=== PATIENT | female | born 1980 | race Caucasian/White ===

== ENCOUNTER 2022-02-24 00:25 | Inpatient (IN) ==
[2022-02-24] MEDS ORDERED: IOPAMIDOL 100 ML BOTTLE IV ONE ×2 (00:26→06:41)
--- NOTE | 2022-02-24 01:02 | Emergency Department Note ---
HPI General Chief complaint: Urogenital-Female Stated complaint: flank pain Time Seen by Provider: 02/24/22 01:01 Source: patient and family (Mother in the room) Mode of arrival: ambulatory Limitations: no limitations History of Present Illness HPI Narrative: Narrative: 41-year-old female returns to the emergency department 2 days after presenting with suprapubic discomfort. At that visit she was suspected having a UTI because she had positive nitrites. She was started on Macrobid and discharged home. Tonight she presents complaining of suprapubic discomfort and right mid back pain. She states she is unable to eat. States unable to rest. Rates her pain as a 9 on a 0-to-10 scale. Describes it as sharp. States it radiates to the back. Denies any trauma. May be associated with the UTI. States that the pain comes and goes. She localizes the pain when pointing to McBurney's point. She states the pain originally started suprapubically. Patient is not aware of having any fever but states that she is having significant sweats. Patient also states that she is hadnausea and vomiting on her way home from the ER 2 days ago. Patient has bipolar disorder, PTSD, depression. Related Data Home Medications Medication Instructions Recorded Confirmed propranolol 80 mg capsule,24 80 mg PO DAILY 09/16/15 02/24/22 hr,extended release aripiprazole 20 mg tablet (Abilify) 20 mg PO QDAY 10/24/20 02/24/22 acyclovir 400 mg tablet 400 mg PO TID 04/23/21 02/24/22 duloxetine 60 mg capsule,delayed 60 mg PO BID cap 04/23/21 02/24/22 release (Cymbalta) spironolactone 25 mg tablet 25 mg PO BID tab 04/23/21 02/24/22 dulaglutide [Trulicity] 0.75 mg SUBCUT WEEKLY 11/20/21 02/24/22 diazepam 5 mg tablet 5 mg PO TID PRN 02/24/22 02/24/22 gabapentin 100 mg tablet 100 mg PO TID 02/24/22 02/24/22 gabapentin 300 mg capsule 300 mg PO QHS 02/24/22 02/24/22 lumateperone 42 mg capsule 42 mg PO DAILY 02/24/22 02/24/22 (Caplyta) metronidazole 500 mg tablet 500 mg PO BID 02/24/22 02/24/22 mirtazapine 30 mg tablet 30 mg PO QHS 02/24/22 02/24/22 prazosin 1 mg capsule 1 mg PO QHS 02/24/22 02/24/22 Previous Rx's Medication Instructions Recorded nitrofurantoin 100 mg PO Q12H 7 Days #14 cap 02/22/22 monohydrate/macrocrystals 100 mg capsule (Macrobid) phenazopyridine 100 mg tablet 100 mg PO TID PRN #6 tab 02/22/22 (Pyridium) Allergies Allergy/AdvReac Type Severity Reaction Status Date / Time desvenlafaxine AdvReac Mild Itching Verified 02/24/22 00:29 divalproex sodium AdvReac Mild Agitated Verified 02/24/22 00:29 [From Depakote] lisinopril AdvReac Mild Cough Verified 02/24/22 00:29 morphine AdvReac Mild Agitated Verified 02/24/22 00:29 Review of Systems ROS ROS Narrative: Narrative: Constitutional: Reports sweats Eyes: Denies eye discharge ENT ED: Denies throat pain or rhinorrhea Cardiovascular: Denies chest pain Respiratory: Denies shortness of breath Gastrointestinal: Reports abdominal pain (Right lower quadrant tenderness. Suprapubic discomfort.), nausea, vomiting and constipation Musculoskeletal: Reports back pain Integumentary: Denies rash Neurological: Reports headache Psychiatric: Reports depression Allergic/Immunologic: Denies facial swelling PFSH Narrative Patient History Narrative: Narrative: Medical/Surgical/Family History All Active Problems (Updated 02/24/22 @ 12:47 by Keyur Laguna MD) Acute appendicitis with appendiceal abscess (Acute) Acute appendicitis with appendiceal abscess (Acute) Acute cystitis (Acute) Parasomnia (Acute) Inadequate sleep hygiene (Acute) Bilateral sacroiliitis (Chronic) Chronic SI joint pain (Chronic) Lumbar pain (Chronic) Polymyalgia (Chronic) PTSD (post-traumatic stress disorder) (Chronic) Arthritis of neck (Chronic) Low back strain (Chronic) Right hip pain (Chronic) Sinusitis (Chronic) Anxiety (Chronic) Dysmenorrhea (Chronic ~08/2011) Tobacco abuse (Chronic) Rheumatoid arthritis (Chronic) Prediabetes (Chronic) Polycystic ovaries (Chronic) Panic disorder with agoraphobia (Chronic 10/29/12) Obesity (Chronic) Insomnia (Chronic) Ingrown nail (Chronic) Hypertension, essential (Chronic 07/05/12) Hypercholesteremia (Chronic) Hip pain (Chronic 08/04/12) Headache (Chronic) Fatigue (Chronic) Depression (Chronic ~1993) Cervical vertebral fracture (Chronic) Bipolar disorder (Chronic) Medical History Arthritis of neck Bilateral sacroiliitis Bipolar disorder Cervical vertebral fracture 2004 - With head injury, but fortunately no lasting problems Chronic SI joint pain Depression (~1993) Dysmenorrhea (~08/2011) Fatigue Headache Hip pain (08/04/12) Hypercholesteremia Hypertension, essential (07/05/12) Inadequate sleep hygiene Ingrown nail Insomnia Low back strain Lumbar pain Obesity Panic disorder with agoraphobia (10/29/12) Parasomnia Polycystic ovaries Polymyalgia Prediabetes PTSD (post-traumatic stress disorder) Rheumatoid arthritis "Juvenile' RA per patient. Affected the right hip, but resolved on it's own Right hip pain Tobacco abuse Surgical History History of adenoidectomy History of hysterectomy (~08/2011) 08/2011 - To treat dysmenorrhea History of removal of ovarian cyst (~10/2011) History of tonsillectomy (~1991) Family History Father , 44 Alcohol abuse Depression Drowned Mother Anemia Depression Essential hypertension Osteoarthritis Anxiety Sister Anemia Depression Essential hypertension Grandmother Cerebrovascular accident Maternal/Paternal Disorder of thyroid Maternal Social History Smoking Status: Current every day smoker Alcohol Intake Frequency: holiday/special occasion only Substance Use: marijuana Exam Narrative Narrative: Narrative: General Limitations: no limitations General appearance: Present alert and in distress Head Head: Present atraumatic and normocephalic Eye Eye: Present normal appearance; Absent scleral icterus Neck Neck: Present normal inspection Respiratory Respiratory: Absent respiratory distress Cardiovascular Cardiovascular: Present regular rate and normal rhythm Adbominal Abdominal: Present soft, tenderness, guarding, rebound and tenderness at McBurney's Point; Absent distention or rigidity Extremities Extremities: Present normal inspection Back Back: Present tenderness (Right mid back) Neurological Neurological: Present alert and oriented X3 Psychiatric Psychiatric: Present normal affect and normal mood Skin Skin: Present warm (WNL) Course Reevaluation(s) Reevaluation #1: Patient states the pain is about the same. We discussed her allergy to morphine which causes her to get agitated. She said that she had an Dilaudid in the past without difficulty. Plan is to give her Dilaudid 0.5 mg now and see how she does in 15 minutes. Patient received 1 L of normal saline and needed to urinate. Patient remains NPO. I discussed the results of the CBC and CMP and that we are waiting for the CT scan results. Patient states that the pain remains the about the same in the right lower quadrant. Time: 03:27 Reevaluation #2: CT results positive for acute appendicitis with moderate sized complex abscess extending posteriorly from the tip of the appendix Time: 04:16 Consultations Consultation #1: Discussed with the surgeon on-call Dr. Aviles. He requested the patient be admi tted onto his service and started on Zosyn 3.375 every 6 along with analgesics and antiemetics and IV fluids. He was here in the hospital. Time: 04:18 Vital Signs Vital signs: Vital Signs Temperature 97.7 F 02/24/22 00:26 Pulse Rate 90 02/24/22 00:26 Respiratory Rate 18 02/24/22 00:26 Blood Pressure 134/84 02/24/22 00:26 Pulse Oximetry (%) 96 02/24/22 00:26 Temperature 97.1 F 02/24/22 07:02 Pulse Rate 87 02/24/22 07:02 Respiratory Rate 15 02/24/22 07:02 Blood Pressure 101/68 02/24/22 07:02 Pulse Oximetry (%) 90 02/24/22 07:02 [facility] Narrative Medical decision making narrative: Narrative: 41-year-old female presents emerged from and with right lower quadrant pain 2 days after being diagnosed as having a UTI because of a positive nitrite on a urine dip. Differential diagnosis includes 1. Acute appendicitis 2. Meckel's diverticulum 3. Kidney stone 4. Pyelonephritis 5. Urinary tract infection 6. Torsion right ovary 7. Tubo-ovarian abscess, other. UA was obtained and it revealed positive nitrites but only 1 white cell and no red cells. White count was16,400 with 78 neutrophils and 11 lymphs. Hemoglobin was 14.3. Lactic acid level was normal at 0.6. Chemistry panel was unrema rkable. Chloride was minimally low at 95. BUN was 5 creatinine was 0.[address] scan still pending. Patient was ordered a liter of normal saline. She was given 4 mg of Zofran IV. Patient is allergic to morphine so pain medicine was initially withheld. Patient states she has had Dilaudid in the past and is given 0.5 mg IV now and will be rechecked in 15 minutes to see how she responded. Patient tolerated the Dilaudid well. She was given a second dose of 0.5 mg and that brought her pain down to a 5 on a 0-to-10 scale. Patient stated she did not want any more analgesics at this time. CT scan results revealed findings compatible with acute appendicitis with moderate size complex abscess extending posteriorly from the tip of the appendix. Abscess measured 7 x 4 x 5 cm. Case was discussed with Dr. Aviles the general surgeon on-call. He requested I admit the patient to the hospital under his service. Asked that I provide the patient with Zosyn 3.375Q6 along with antiemetics and analgesia. Lab Data Result diagrams: 02/24/22 01:42 02/24/22 01:42 Labs: Lab Results 02/24/22 02/24/22 02/24/22 Range/Units 00:50 01:42 01:42 WBC 16.4 H (4.5-11.0) K/mcL RBC 4.93 (3.59-5.38) M/mcL Hgb 14.3 (11.2-15.7) g/dL Hct 43.2 (34.1-44.9) % MCV 87.6 (80.0-100.0) fL MCH 29.0 (26.0-34.0) pg MCHC 33.1 (31.0-36.0) g/dL RDW 12.8 (11.5-14.5) % Plt Count 223 (140-440) K/mcL MPV 10.9 H (7.4-10.4) fL Neut % (Auto) 78.4 H (38.0-78.0) % Lymph % (Auto) 11.6 L (15.5-49.0) % Sherman % (Auto) 7.6 (1.0-12.0) % Eos % (Auto) 2.1 (0.0-7.0) % Baso % (Auto) 0.3 (0.0-2.0) % Lymph # (Auto) 1.90 (1.50-4.80) K/mcL Sherman # (Auto) 1.24 H (0.10-0.90) K/mcL Eos # (Auto) 0.35 (0.00-0.70) K/mcL Baso # (Auto) 0.05 (0.00-0.30) K/mcL Absolute Neutrophils 12.88 H (1.80-8.00) K/mcL PT (11.9-14.5) sec INR (0.9-1.1) VBG Lactic Acid (0.5-2.0) mmol/L Sodium 133 (133-145) mmol/L Potassium 3.8 (3.3-5.1) mmol/L Chloride 95 L (96-108) mmol/L Carbon Dioxide 25 (22-30) mmol/L Anion Gap 13.0 (8.0-16.0) BUN 5 L (6-20) mg/dL Creatinine 0.5 L (0.6-1.1) mg/dL GFR Calculation 121 Glucose 97 (70-105) mg/dL Calcium 9.0 (8.6-10.4) mg/dL Total Bilirubin 0.4 (0.1-1.0) mg/dL AST 10 (<32) U/L ALT 33 (<40) U/L Alkaline Phosphatase 132 H (39-117) U/L Total Protein 6.5 (5.9-8.4) gm/dL Albumin 3.3 (3.2-5.2) gm/dL Globulin 3.2 (2.2-3.7) gm/dL Albumin/Globulin Ratio 1.0 (1.0-2.3) Urine Color Zuly Urine Appearance Clear (Clear) Urine pH 5.0 (5.0-9.0) Ur Specific [place] 1.014 (1.000-1.035) Urine Protein Negative (Negative) mg/dL Urine Glucose (UA) Negative (Negative) mg/dL Urine Ketones Negative (Negative) mg/dL Urine Occult Blood Negative (Negative) mg/dL Urine Nitrate Pos A (Negative) Urine Bilirubin Negative (Negative) mg/dL Urine Urobilinogen 4.0 A mg/dL Ur Leukocyte Esterase Negative (Negative) /uL Urine RBC 0 (0-3) /hpf Urine WBC 1 (0-4) /hpf Ur Squamous Epith Cells 1 (0-4) /hpf Urine Bacteria None (0) /hpf Ur Culture Indicated? No 02/24/22 02/24/22 Range/Units 01:42 01:42 WBC (4.5-11.0) K/mcL RBC (3.59-5.38) M/mcL Hgb (11.2-15.7) g/dL Hct (34.1-44.9) % MCV (80.0-100.0) fL MCH (26.0-34.0) pg MCHC (31.0-36.0) g/dL RDW (11.5-14.5) % Plt Count (140-440) K/mcL MPV (7.4-10.4) fL Neut % (Auto) (38.0-78.0) % Lymph % (Auto) (15.5-49.0) % Sherman % (Auto) (1.0-12.0) % Eos % (Auto) (0.0-7.0) % Baso % (Auto) (0.0-2.0) % Lymph # (Auto) (1.50-4.80) K/mcL Sherman # (Auto) (0.10-0.90) K/mcL Eos # (Auto) (0.00-0.70) K/mcL Baso # (Auto) (0.00-0.30) K/mcL Absolute Neutrophils (1.80-8.00) K/mcL PT 13.5 (11.9-14.5) sec INR 1.0 (0.9-1.1) VBG Lactic Acid 0.6 (0.5-2.0) mmol/L Sodium (133-145) mmol/L Potassium (3.3-5.1) mmol/L Chloride (96-108) mmol/L Carbon Dioxide (22-30) mmol/L Anion Gap (8.0-16.0) BUN (6-20) mg/dL Creatinine (0.6-1.1) mg/dL GFR Calculation Glucose (70-105) mg/dL Calcium (8.6-10.4) mg/dL Total Bilirubin (0.1-1.0) mg/dL AST (<32) U/L ALT (<40) U/L Alkaline Phosphatase (39-117) U/L Total Protein (5.9-8.4) gm/dL Albumin (3.2-5.2) gm/dL Globulin (2.2-3.7) gm/dL Albumin/Globulin Ratio (1.0-2.3) Urine Color Urine Appearance (Clear) Urine pH (5.0-9.0) Ur Specific [place] (1.000-1.035) Urine Protein (Negative) mg/dL Urine Glucose (UA) (Negative) mg/dL Urine Ketones (Negative) mg/dL Urine Occult Blood (Negative) mg/dL Urine Nitrate (Negative) Urine Bilirubin (Negative) mg/dL Urine Urobilinogen mg/dL Ur Leukocyte Esterase (Negative) /uL Urine RBC (0-3) /hpf Urine WBC (0-4) /hpf Ur Squamous Epith Cells (0-4) /hpf Urine Bacteria (0) /hpf Ur Culture Indicated? ED POC Tests ED POC Tests: JANELLE - SARS Antigen Negative HCG POC Results Negative Discharge Plan Patient/Caregiver Discharge Instructions Pt seen by GLASS DECORATOR/PA only: No Clinical Impression: Acute appendicitis with appendiceal abscess Patient Disposition: Xfer As Inpt ([facility]) Condition: Serious Discharge Date/Time: 02/24/22 06:40 Discharge Location: [facility]
[2022-02-24] MEDS ORDERED: ONDANSETRON 4 MG/2 ML VIAL IV ONE (01:23)
[2022-02-24] MEDS ORDERED: 0.9 % SODIUM CHLORIDE 1,000 ML IV ONE ×2 (01:23→03:18)
[2022-02-24 02:17] LABS: Basophils # (Auto) 0.05 K/mcL (0.00-0.30); Basophils % (Auto) 0.3 % (0.0-2.0); Eosinophils # (Auto) 0.35 K/mcL (0.00-0.70); Eosinophils % (Auto) 2.1 % (0.0-7.0); Hematocrit 43.2 % (34.1-44.9); Hemoglobin 14.3 g/dL (11.2-15.7); Lymphocytes % (Auto) 11.6 % (15.5-49.0); Mean Cell Volume 87.6 fL (80.0-100.0); Mean Corpuscular HGB Conc 33.1 g/dL (31.0-36.0); Mean Platelet Volume 10.9 fL (7.4-10.4); Monocytes # (Auto) 1.24 K/mcL (0.10-0.90); Monocytes % (Auto) 7.6 % (1.0-12.0); Neutrophils % (Auto) 78.4 % (38.0-78.0); Platelet Count 223 K/mcL (140-440); RBC 4.93 M/mcL (3.59-5.38); Red Cell Distribution Width 12.8 % (11.5-14.5); WBC 16.4 K/mcL (4.5-11.0)
[2022-02-24 02:28] LABS: Appearance,Urine CLEAR (Clear); Bilirubin,Urine Negative (Negative); Color,Urine AMBER; Culture Indicated,Urine No; Glucose,Urine (UA) Negative (Negative); Ketones,Urine Negative (Negative); Leukocyte Esterase,Urine Negative /uL (Negative); Nitrate,Urine POS (Negative); Protein,Urine Negative (Negative); Specific Gravity,Urine 1.014 (1.000-1.035); Urine Blood Negative (Negative); Urine RBC 0 /hpf (0-3); Urine Squamous Epithelial Cell 1 /hpf (0-4); Urine WBC 1 /hpf (0-4)
[2022-02-24 02:40] LABS: ALT/SGPT 33 U/L (<40); AST/SGOT 10 U/L (<32); Albumin 3.3 gm/dL (3.2-5.2); Alkaline Phosphatase 132 U/L (39-117); Bilirubin,Total 0.4 mg/dL (0.1-1.0); Blood Urea Nitrogen 5 mg/dL (6-20); Carbon Dioxide 25 mmol/L (22-30); Chloride 95 mmol/L (96-108); Globulin 3.2 gm/dL (2.2-3.7); Glomerular Filtration Rate 121; Glucose 97 mg/dL (70-105)
[2022-02-24] MEDS ORDERED: HYDROmorphone 0.5 MG/0.5 ML SYRINGE IV ONE (03:26)
[2022-02-24] MEDS: HYDROmorphone 0.5 MG/0.5 ML SYRINGE IV PRN ×3 (03:46→17:52)
[2022-02-24] MEDS: PIPERACILLIN SODIUM/TAZOBACTAM 3.375 GM in DEXTROSE 5% IN WATER 50 ML IV SCH ×3 (05:15→17:39)
[2022-02-24 05:40] LABS: Prothrombin Time 13.5 sec (11.9-14.5)
[2022-02-24] MEDS ORDERED: ONDANSETRON 4 MG/2 ML VIAL IV PRN ×2 (07:23→13:48)
[2022-02-24] MEDS ORDERED: PROMETHAZINE 25 MG/ML VIAL IV PRN ×2 (07:48→13:48)
--- NOTE | 2022-02-24 07:57 | XRay Report ---
HISTORY: Preop, smoker, flank pain FINDINGS: The lungs are clear. The heart, mediastinum, curt and pleura are normal. There has been no significant change since 11/01/19. IMPRESSION: Normal chest. Interpreted and Authenticated by: Ran Carson 02/24/22
[2022-02-24] MEDS: 0.9 % SODIUM CHLORIDE 1,000 ML IV SCH ×3 (07:59→18:46)
[2022-02-24] MEDS ORDERED: ACETAMINOPHEN 1,000 MG/100 ML BAG IV SCH ×3 (08:00→17:45)
--- NOTE | 2022-02-24 09:14 | Cat Scan Report ---
History: Right lower quadrant pain, prior hysterectomy TECHNIQUE: Following injection of intravenous nonionic contrast the patient was imaged during the portal venous phase from above the diaphragm through the symphysis pubis. Sagittal and coronal reformats were created. The radiation exposure was limited using dose reduction technology. FINDINGS: The liver and spleen are normal in size and homogeneous. The gallbladder has been removed. The bile ducts are nondilated. The pancreas is normal in size. The mid body there is a focal 1.5 mm calcification. There is no associated inflammation. There is no pancreatic mass and the duct is normal in caliber. The adrenals and kidneys are normal. There is no kidney stone, hydronephrosis or radiographic evidence of pyelonephritis. There is a complex multi loculated fluid collection with thickened sanchez located deep within the right lower pelvis. There is some thickening of the wall of the adjacent distal ileum. This appears to be due to acute appendicitis. What appears to be the appendix measures 16 mm in diameter. The overall size of this collection is approximately 4 x 5 x 7 cm. There is a trace amount of ascites adjacent to this collection. No free intra-abdominal air is present. Large bowel is normal without evidence of diverticulitis or colitis. Left ovary is normal. Right ovary cannot be identified separate from the inflammation in the right lower quadrant. There is arthritis in the facets bilaterally at L4-5 and L5-S1. IMPRESSION: Inflammation with abscess developing deep in the right lower pelvis. This is probably due to acute appendicitis. Interpreted and Authenticated by: Ran Carson 02/24/22
--- NOTE | 2022-02-24 09:59 | General Surg History&Physical ---
HPI History of Present Illness Patient information: Note initiated : 02/24/22 at 9:53 am Service Date, if different from initiated Date: [] Patient: Yvette Arellano a 41 y/o F admitted on 02/24/22 for flank pain. Chief Complaint: [] Chief complaint: Acute appendicitis History of present illness: Ms. Arellano is a 41 year old F admitted for evaluation of abdominal pain with acute appendicitis. The patient presents with a 3-day history of lower abdominal pain and right lower quadrant pain with nausea and vomiting. She states that the pain became more diffuse and radiated through to her back she was seen in the emergency room and treated for UTI about symptoms did not improve. She returned to the emergency room because of continued and worsening symptoms. CT of the abdomen was done that showed an acutely inflamed appendix with a periappendiceal abscess in the pelvis. Patient was admitted and has been started on antibiotics. She is counseled for laparoscopic appendectomy and drainage of pelvic abscess later today. Review of Systems All systems: reviewed and no additional remarkable complaints except as stated (No other symptoms except as noted in the HPI) PFSH PFSH All Active Problems (Updated 02/24/22 @ 09:58 by Hayes Aviles MD) Acute appendicitis with appendiceal abscess (Acute) Acute cystitis (Acute) Parasomnia (Acute) Inadequate sleep hygiene (Acute) Bilateral sacroiliitis (Chronic) Chronic SI joint pain (Chronic) Lumbar pain (Chronic) Polymyalgia (Chronic) PTSD (post-traumatic stress disorder) (Chronic) Arthritis of neck (Chronic) Low back strain (Chronic) Right hip pain (Chronic) Sinusitis (Chronic) Anxiety (Chronic) Dysmenorrhea (Chronic ~08/2011) Tobacco abuse (Chronic) Rheumatoid arthritis (Chronic) Prediabetes (Chronic) Polycystic ovaries (Chronic) Panic disorder with agoraphobia (Chronic 10/29/12) Obesity (Chronic) Insomnia (Chronic) Ingrown nail (Chronic) Hypertension, essential (Chronic 07/05/12) Hypercholesteremia (Chronic) Hip pain (Chronic 08/04/12) Headache (Chronic) Fatigue (Chronic) Depression (Chronic ~1993) Cervical vertebral fracture (Chronic) Bipolar disorder (Chronic) Medical History Arthritis of neck Bilateral sacroiliitis Bipolar disorder Cervical vertebral fracture 2004 - With head injury, but fortunately no lasting problems Chronic SI joint pain Depression (~1993) Dysmenorrhea (~08/2011) Fatigue Headache Hip pain (08/04/12) Hypercholesteremia Hypertension, essential (07/05/12) Inadequate sleep hygiene Ingrown nail Insomnia Low back strain Lumbar pain Obesity Panic disorder with agoraphobia (10/29/12) Parasomnia Polycystic ovaries Polymyalgia Prediabetes PTSD (post-traumatic stress disorder) Rheumatoid arthritis "Juvenile' RA per patient. Affected the right hip, but resolved on it's own Right hip pain Tobacco abuse Surgical History History of adenoidectomy History of hysterectomy (~08/2011) 08/2011 - To treat dysmenorrhea History of removal of ovarian cyst (~10/2011) History of tonsillectomy (~1991) Family History Father , 44 Alcohol abuse Depression Drowned Mother Anemia Depression Essential hypertension Osteoarthritis Anxiety Sister Anemia Depression Essential hypertension Grandmother Cerebrovascular accident Maternal/Paternal Disorder of thyroid Maternal Social History marital status: education level: high school occupational status: disabled leisure activities: fishing and reading physical activity: none smoking status: Current every day smoker tobacco type: cigarettes per day: 23 pack-years: 10 alcohol intake frequency: holiday/special occasion only substance use type: marijuana seatbelt use: always MEDS/ALLERGIES Home Medications and Allergies Home Medications Medication Instructions Recorded Confirmed Type propranolol 80 mg capsule,24 80 mg PO DAILY 09/16/15 11/20/21 History hr,extended release aripiprazole 20 mg tablet (Abilify) 20 mg PO QDAY 10/24/20 11/20/21 History acyclovir 400 mg tablet 400 mg PO TID 04/23/21 11/20/21 History clonazepam 2 mg tablet 2 mg PO .COMPLEX 04/23/21 11/20/21 History duloxetine 60 mg capsule,delayed 60 mg PO BID cap 04/23/21 11/20/21 History release (Cymbalta) spironolactone 25 mg tablet 25 mg PO BID tab 04/23/21 11/20/21 History dulaglutide [Trulicity] SUBCUT 11/20/21 11/20/21 History nitrofurantoin 100 mg PO Q12H 7 Days #14 cap 02/22/22 Rx monohydrate/macrocrystals 100 mg capsule (Macrobid) phenazopyridine 100 mg tablet 100 mg PO TID PRN #6 tab 02/22/22 Rx (Pyridium) Allergies Allergy/AdvReac Type Severity Reaction Status Date / Time desvenlafaxine AdvReac Mild Itching Verified 02/24/22 00:29 divalproex sodium AdvReac Mild Agitated Verified 02/24/22 00:29 [From Depakote] lisinopril AdvReac Mild Cough Verified 02/24/22 00:29 morphine AdvReac Mild Agitated Verified 02/24/22 00:29 Physical Examination Vital Signs Vital signs: Temp Pulse Resp BP Pulse Ox 97.1 F 87 15 101/68 90 02/24/22 07:02 02/24/22 07:02 02/24/22 07:02 02/24/22 07:02 02/24/22 07:02 General physical appearance General physical exam: well developed, well nourished, moderate distress and moderate pain Eyes Eye exam: PERRL and normal ocular movement ENT ENT exam: normal mucosa and no hearing loss Head Head exam IM: Present atraumatic, normal inspection and normocephalic Neck Neck exam: no masses, no bruits, trachea midline, no lymphadenopathy and no venous distension Cardiovascular Cardiovascular exam IM: Present normal rate and rhythm, RRR, +S1 and +S2; Absent JVD Respiratory Respiratory exam: normal expansion, normal respiratory effort and clear to auscu ltation Abdomen Abdomen: Present soft and tender (Tenderness to palpation in right lower quadrant and entire hypogastrium and pelvis) Integumentary Integumentary: Present no rash, no growths and no abnormal pigmentation Neurologic Neurologic: Present normal coordination and normal sensation Musculoskeletal Musculoskeletal: Present normal gait, normal posture and other Psychiatric Psychiatric: Present oriented to time, oriented to person, oriented to place, speech is normal and memory intact Results Labs Result diagrams: 02/24/22 01:42 02/24/22 01:42 Labs: Abnormal lab results 02/24/22 02/24/22 02/24/22 Range/Units 00:50 01:42 01:42 WBC 16.4 H (4.5-11.0) K/mcL MPV 10.9 H (7.4-10.4) fL Neut % (Auto) 78.4 H (38.0-78.0) % Lymph % (Auto) 11.6 L (15.5-49.0) % [place] # (Auto) 1.24 H (0.10-0.90) K/mcL Absolute Neutrophils 12.88 H (1.80-8.00) K/mcL Chloride 95 L (96-108) mmol/L BUN 5 L (6-20) mg/dL Creatinine 0.5 L (0.6-1.1) mg/dL Alkaline Phosphatase 132 H (39-117) U/L Urine Nitrate Pos A (Negative) Urine Urobilinogen 4.0 A mg/dL Diabetes panel 02/24/22 Range/Units 01:42 Sodium 133 (133-145) mmol/L Potassium 3.8 (3.3-5.1) mmol/L Chloride 95 L (96-108) mmol/L Carbon Dioxide 25 (22-30) mmol/L BUN 5 L (6-20) mg/dL Creatinine 0.5 L (0.6-1.1) mg/dL Glucose 97 (70-105) mg/dL Calcium 9.0 (8.6-10.4) mg/dL AST 10 (<32) U/L ALT 33 (<40) U/L Alkaline Phosphatase 132 H (39-117) U/L Total Protein 6.5 (5.9-8.4) gm/dL Albumin 3.3 (3.2-5.2) gm/dL Calcium panel 02/24/22 Range/Units 01:42 Calcium 9.0 (8.6-10.4) mg/dL Albumin 3.3 (3.2-5.2) gm/dL Pituitary panel 02/24/22 Range/Units 01:42 Sodium 133 (133-145) mmol/L Potassium 3.8 (3.3-5.1) mmol/L Chloride 95 L (96-108) mmol/L Carbon Dioxide 25 (22-30) mmol/L BUN 5 L (6-20) mg/dL Creatinine 0.5 L (0.6-1.1) mg/dL Glucose 97 (70-105) mg/dL Calcium 9.0 (8.6-10.4) mg/dL Adrenal panel 02/24/22 Range/Units 01:42 Sodium 133 (133-145) mmol/L Potassium 3.8 (3.3-5.1) mmol/L Chloride 95 L (96-108) mmol/L Carbon Dioxide 25 (22-30) mmol/L BUN 5 L (6-20) mg/dL Creatinine 0.5 L (0.6-1.1) mg/dL Glucose 97 (70-105) mg/dL Calcium 9.0 (8.6-10.4) mg/dL Total Bilirubin 0.4 (0.1-1.0) mg/dL AST 10 (<32) U/L ALT 33 (<40) U/L Alkaline Phosphatase 132 H (39-117) U/L Total Protein 6.5 (5.9-8.4) gm/dL Albumin 3.3 (3.2-5.2) gm/dL All other labs normal. A/P Assessment and plan (1) Acute appendicitis with appendiceal abscess: Status: Acute (2) PTSD (post-traumatic stress disorder): Status: Chronic (3) Panic disorder with agoraphobia: Status: Chronic (4) Hypertension, essential: Status: Chronic (5) Bipolar disorder: Status: Chronic Plan Patient has been scheduled for laparoscopic appendectomy. She will continue on IV antibiotics. She is informed that she will have a pelvic drain for 10 to 14 days postoperatively. Time Spent With Patient Time: Total time spent is greater than 50% in coordination of care (as documented) at patient's floor/unit and/or counseling patient:
[2022-02-24] MEDS ORDERED: PROPOFOL 200 MG/20 ML VIAL IV ONE (13:20)
[2022-02-24] MEDS ORDERED: ROCURONIUM 10 MG/ML ML IV ONE (13:20)
[2022-02-24] MEDS ORDERED: LIDOCAINE HCL/PF 100 MG/5 ML SYRINGE IV ONE (13:20)
[2022-02-24] MEDS ORDERED: MAGNESIUM SULFATE 2 GM/50 ML BAG IV ONE (13:20)
[2022-02-24] MEDS ORDERED: KETAMINE 50 MG/ML Syringe (ANEST) IV ONE (13:20)
[2022-02-24] MEDS ORDERED: fentaNYL 250 MCG/5 ML VIAL IV ONE (13:20)
[2022-02-24] MEDS ORDERED: SUGAMMADEX SODIUM 200 MG/2 ML VIAL IV ONE (13:20)
[2022-02-24] MEDS ORDERED: DEXAMETHASONE 10 MG/ML VIAL ONE (13:20)
[2022-02-24] MEDS ORDERED: ONDANSETRON 4 MG/2 ML VIAL ONE (13:20)
[2022-02-24] MEDS ORDERED: ACETAMINOPHEN 1,000 MG/100 ML BAG IV ONE (13:48)
[2022-02-24] MEDS ORDERED: NALOXONE HCL 0.4 MG/ML VIAL IV PRN (13:48)
[2022-02-24] MEDS ORDERED: IPRATROPIUM/ALBUTEROL 3 ML AMPUL.NEB NEB PRN (13:48)
[2022-02-24] MEDS ORDERED: MEPERIDINE 25 MG/ML VIAL IV PRN (13:48)
[2022-02-24] MEDS ORDERED: diphenhydrAMINE 50 MG/ML VIAL IV PRN (13:48)
[2022-02-24] MEDS ORDERED: LACTATED RINGERS 250 ML IV PRN (13:48)
[2022-02-24] MEDS ORDERED: PROMETHAZINE 25 MG/ML VIAL IM PRN (13:48)
[2022-02-24] MEDS ORDERED: MEPERIDINE 50 MG/ML VIAL IM PRN (13:48)
[2022-02-24] MEDS ORDERED: LACTATED RINGERS 1,000 ML IV SCH (14:00)
--- NOTE | 2022-02-24 14:27 | Brief Operative Note ---
Brief Operative Note Date of procedure: 02/24/22 Pre-op diagnosis: ACUTE APPENDICITIS WITH ABSCESS Post-op diagnosis: other (ACUTE APPENDICITIS WITH PERFORATION AND PELVIC ABSCESS) Procedure: LAPAROSCOPIC APPENDECTOMY AND DRAINAGE OF PELVIC ABSCESS Grafts/Implants: No (#10 LAKSHMI DRAIN IN PELVIS) Anesthesia: GETA Findings: ACUTE SEVERE GANGRENOUS APPENDIX WITH PERFORATION OF DISTAL TIP Complications: none Surgeon: Hayes Aviles Estimated blood loss (cc): 100 Specimens Removed/Pathology: other (APPENDIX) Condition: stable Disposition: PACU
[2022-02-24] MEDS: fentaNYL 100 MCG/2 ML VIAL IV PRN ×5 (15:06→15:22)
[2022-02-24] MEDS ORDERED: DIAZEPAM 5 MG TABLET PO PRN (17:04)
[2022-02-24] MEDS: ALPRAZolam 0.5 MG TABLET PO SCH (17:38)
[2022-02-24 19:56] LABS: ALT/SGPT 28 U/L (<40); AST/SGOT 18 U/L (<32); Albumin 2.7 gm/dL (3.2-5.2); Albumin/Globulin Ratio 0.8 (1.0-2.3); Alkaline Phosphatase 131 U/L (39-117); Bilirubin,Direct 0.3 mg/dL (<0.3); Bilirubin,Total 0.5 mg/dL (0.1-1.0); Blood Urea Nitrogen 4 mg/dL (6-20); Calcium 8.5 mg/dL (8.6-10.4); Carbon Dioxide 22 mmol/L (22-30); Chloride 100 mmol/L (96-108); Globulin 3.4 gm/dL (2.2-3.7); Glomerular Filtration Rate 121; Glucose 159 mg/dL (70-105); Lactate Dehydrogenase 148 U/L (135-225); Phosphorous 4.2 mg/dL (2.5-4.5); Triglycerides 68 mg/dL (<150); Uric Acid 2.6 mg/dL (2.5-8.0)
[2022-02-24] MEDS: ACETAMINOPHEN 1,000 MG/100 ML BAG IV SCH (20:55)
[2022-02-24] MEDS: DULoxetine 30 MG CAPSULE PO SCH (21:01)
[2022-02-24] MEDS: GABAPENTIN 100 MG CAPSULE PO SCH (21:01)
[2022-02-24] MEDS: MIRTAZAPINE 15 MG TABLET PO SCH ×2 (21:01→21:04)
[2022-02-25] MEDS: ALPRAZolam 0.5 MG TABLET PO SCH ×4 (00:05→21:09)
[2022-02-25] MEDS: PIPERACILLIN SODIUM/TAZOBACTAM 3.375 GM in DEXTROSE 5% IN WATER 50 ML IV SCH ×5 (00:12→23:37)
[2022-02-25] MEDS: ACETAMINOPHEN 1,000 MG/100 ML BAG IV SCH ×3 (02:22→13:35)
[2022-02-25] MEDS: 0.9 % SODIUM CHLORIDE 1,000 ML IV SCH ×2 (02:55→10:50)
[2022-02-25 06:13] LABS: Basophils # (Auto) 0.01 K/mcL (0.00-0.30); Basophils % (Auto) 0.1 % (0.0-2.0); Eosinophils # (Auto) 0 K/mcL (0.00-0.70); Eosinophils % (Auto) 0 % (0.0-7.0); Hematocrit 38.7 % (34.1-44.9); Hemoglobin 12.5 g/dL (11.2-15.7); Lymphocytes # (Auto) 0.86 K/mcL (1.50-4.80); Lymphocytes % (Auto) 6.6 % (15.5-49.0); Mean Cell Volume 89.4 fL (80.0-100.0); Mean Corpuscular HGB Conc 32.3 g/dL (31.0-36.0); Mean Platelet Volume 10.5 fL (7.4-10.4); Monocytes # (Auto) 0.46 K/mcL (0.10-0.90); Monocytes % (Auto) 3.5 % (1.0-12.0); Neutrophils % (Auto) 89.8 % (38.0-78.0); Platelet Count 226 K/mcL (140-440); RBC 4.33 M/mcL (3.59-5.38); Red Cell Distribution Width 12.7 % (11.5-14.5); WBC 13.1 K/mcL (4.5-11.0)
[2022-02-25 06:42] LABS: ALT/SGPT 23 U/L (<40); AST/SGOT 10 U/L (<32); Albumin 2.5 gm/dL (3.2-5.2); Albumin/Globulin Ratio 0.8 (1.0-2.3); Alkaline Phosphatase 111 U/L (39-117); Bilirubin,Direct < 0.2 mg/dL (0-0.3); Bilirubin,Total 0.2 mg/dL (0.1-1.0); Blood Urea Nitrogen 3 mg/dL (6-20); Calcium 8.7 mg/dL (8.6-10.4); Carbon Dioxide 23 mmol/L (22-30); Chloride 104 mmol/L (96-108); Globulin 3.3 gm/dL (2.2-3.7); Glomerular Filtration Rate 131; Glucose 137 mg/dL (70-105); Lactate Dehydrogenase 220 U/L (135-225); Phosphorous 3.4 mg/dL (2.5-4.5); Triglycerides 59 mg/dL (<150); Uric Acid 2.1 mg/dL (2.5-8.0)
[2022-02-25] MEDS: PANTOPRAZOLE 40 MG VIAL IV SCH ×2 (07:27→16:38)
[2022-02-25] MEDS: DULoxetine 30 MG CAPSULE PO SCH ×2 (08:52→21:09)
[2022-02-25] MEDS: oxyCODONE HCL 5 MG TABLET PO PRN ×3 (08:53→21:13)
[2022-02-25] MEDS: LUMATEPERONE 42 MG PO SCH (09:08)
[2022-02-25] MEDS: GABAPENTIN 100 MG CAPSULE PO SCH ×3 (09:08→21:09)
--- NOTE | 2022-02-25 14:43 | General Surgery Progress Note ---
SUBJECTIVE Subjective Patient information: Note initiated : 02/25/22 at 2:38 pm Service Date, if different from initiated Date: [] Patient: Yvette Arellano 41 y/o F admitted on 02/24/22 for flank pain. Chief Complaint: [] Principal diagnosis: Acute appendicitis with perforation Interval history: Patient feels better though she has pain in her Right lower quadrant persists. She is afebrile. White blood count 13.1, hemoglobin 12.5, hematocrit 30.7, potassium, BUN, creatinine are normal. DANN drainage is serosanguineous Constitutional Vitals: Vital Signs Temp Pulse Resp BP Pulse Ox 97.0 F 65 20 96/67 94 02/25/22 12:00 02/25/22 12:00 02/25/22 12:00 02/25/22 12:00 02/25/22 12:00 Period Temp Pulse Resp BP Sys/Amin Pulse Ox Last 24 Hr 96.0 F-97.9 F 60-85 10-21 95-129/60-84 91-98 Intake and Output 02/25/22 02/25/22 02/25/22 05:59 13:59 21:59 Intake Total 1550 1200 Output Total 965 25 Balance 585 1175 Intake & Output: Intake & Output 02/25/22 02/25/22 02/25/22 05:59 13:59 21:59 Intake Total 1550 1200 Output Total 965 25 Balance 585 1175 Intake: IV 1250 1200 Sodium Chloride 0.9% 1,000 ml @ 1000 1000 150 mls/hr IV .[id number] [facility] Rx#: [id number] Zosyn 3.375 gm In Dextrose 5% 50 100 in Water 50 ml @ 100 mls/hr IV Q6H [facility] Rx#:[id number] Oral 300 Output: Drainage 25 Lower Abdomen 25 Drainage 40 Lower Abdomen 40 Void Amount 925 Other: Meal Dinner Percent of Meal Consumed 100% Feeding Ability Independent Urine Appearance Clear Urine Color Bright Yellow Urine Odor Normal Neck Neck exam: Present full ROM and normal inspection Respiratory Respiratory exam: Present normal respiratory exam and CTAB Cardiovascular Cardiovascular exam: Present normal rate and rhythm, RRR, +S1 and +S2; Absent JVD GI/Abdominal GI/Abdominal exam: Present normal bowel sounds, soft, distended and tenderness (Tenderness around port sites and right lower quadrant) Extremities Exam Extremities exam: Present normal inspection and neurovascular intact A/P Assessment and plan (1) Acute appendicitis with appendiceal abscess: Status: Acute (2) PTSD (post-traumatic stress disorder): Status: Chronic (3) Panic disorder with agoraphobia: Status: Chronic (4) Hypertension, essential: Status: Chronic (5) Bipolar disorder: Status: Chronic Plan CT of abdomen and pelvis in the a.m. Advance to GI soft diet Time Spent With Patient Time: Total time spent is greater than 50% in coordination of care (as documented) at patient's floor/unit and/or counseling patient:
[2022-02-25] MEDS: MIRTAZAPINE 15 MG TABLET PO SCH (21:09)
[2022-02-26] MEDS: ALPRAZolam 0.5 MG TABLET PO SCH ×4 (00:16→17:49)
[2022-02-26] MEDS: oxyCODONE HCL 5 MG TABLET PO PRN ×5 (00:16→21:27)
[2022-02-26] MEDS: PIPERACILLIN SODIUM/TAZOBACTAM 3.375 GM in DEXTROSE 5% IN WATER 50 ML IV SCH ×4 (05:44→23:26)
[2022-02-26 06:36] LABS: Basophils # (Auto) 0.02 K/mcL (0.00-0.30); Basophils % (Auto) 0.1 % (0.0-2.0); Eosinophils # (Auto) 0 K/mcL (0.00-0.70); Eosinophils % (Auto) 0 % (0.0-7.0); Hematocrit 37.4 % (34.1-44.9); Lymphocytes # (Auto) 1.67 K/mcL (1.50-4.80); Lymphocytes % (Auto) 12.3 % (15.5-49.0); Mean Cell Volume 89.9 fL (80.0-100.0); Mean Corpuscular HGB Conc 32.1 g/dL (31.0-36.0); Mean Platelet Volume 10.7 fL (7.4-10.4); Monocytes # (Auto) 0.55 K/mcL (0.10-0.90); Monocytes % (Auto) 4.1 % (1.0-12.0); Neutrophils % (Auto) 83.5 % (38.0-78.0); Platelet Count 286 K/mcL (140-440); RBC 4.16 M/mcL (3.59-5.38); Red Cell Distribution Width 13.2 % (11.5-14.5); WBC 13.5 K/mcL (4.5-11.0)
[2022-02-26 07:30] LABS: ALT/SGPT 19 U/L (<40); AST/SGOT 7 U/L (<32); Albumin 2.7 gm/dL (3.2-5.2); Albumin/Globulin Ratio 0.8 (1.0-2.3); Alkaline Phosphatase 104 U/L (39-117); Bilirubin,Direct < 0.2 mg/dL (0-0.3); Bilirubin,Total 0.2 mg/dL (0.1-1.0); Blood Urea Nitrogen < 2 mg/dL (6-20); Calcium 8.9 mg/dL (8.6-10.4); Carbon Dioxide 26 mmol/L (22-30); Chloride 106 mmol/L (96-108); Globulin 3.3 gm/dL (2.2-3.7); Glomerular Filtration Rate 131; Glucose 91 mg/dL (70-105); Lactate Dehydrogenase 141 U/L (135-225); Phosphorous 3.6 mg/dL (2.5-4.5); Triglycerides 89 mg/dL (<150); Uric Acid 2.1 mg/dL (2.5-8.0)
[2022-02-26] MEDS: PANTOPRAZOLE 40 MG VIAL IV SCH ×2 (08:50→17:49)
[2022-02-26] MEDS: GABAPENTIN 100 MG CAPSULE PO SCH ×3 (08:50→21:26)
[2022-02-26] MEDS: DULoxetine 30 MG CAPSULE PO SCH ×2 (08:50→21:25)
[2022-02-26] MEDS: LUMATEPERONE 42 MG PO SCH (08:51)
--- NOTE | 2022-02-26 09:48 | Cat Scan Report ---
History: Follow-up pelvic abscess TECHNIQUE: Following injection of intravenous nonionic contrast the patient was imaged during the portal venous phase from the diaphragm through the symphysis pubis. Sagittal and coronal reformats were created. The radiation exposure was limited using dose reduction technology. FINDINGS: Patient has developed several thick bands of atelectasis in both lung bases, which are new since 02/24/22. The liver is normal in size. There is mild fatty infiltration. The gallbladder has been removed. Bile ducts are nondilated. The spleen is normal. Pancreas, adrenals and kidneys are normal. There is no hydronephrosis or kidney stone. There is a residual heterogeneous abscess located deep in the right lower pelvis. It contains both solid and liquefied components. The overall size is approximately 3.5 x 4.7 x 7.9 cm. There is stranding of the surrounding fat. The stranding of the fat has improved. There is a trace amount of free fluid deep in the right lower pelvis. What was interpreted as an inflamed appendix on the prior CT has been removed and there are now clips in this region. There is a surgically inserted drainage catheter. The catheter passes along the right side of the urinary bladder and then turns laterally and superiorly. The tip of the catheter is in the right paracolic gutter. The catheter is not within the abscess collection. No free intraperitoneal air is present. Normal amount stool seen throughout the large intestine. Small intestine is normal in caliber and there is no ileus or obstruction. The uterus is absent. Neither ovary is seen. Urinary bladder is normally distended and has a smooth wall. There is small amount of air within the bladder which may be due to catheterization. IMPRESSION: Improving inflammation in the right lower pelvis with a residual abscess deep in the right lower pelvis Interpreted and Authenticated by: Ran Carson 02/26/22
--- NOTE | 2022-02-26 15:31 | General Surgery Progress Note ---
SUBJECTIVE Subjective Patient information: Note initiated : 02/26/22 at 3:27 pm Service Date, if different from initiated Date: [] Patient: Yvette Arellano 41 y/o F admitted on 02/26/22 for flank pain. Chief Complaint: [] Principal diagnosis: Acute appendicitis with perforation Interval history: Patient is clinically stable. CT showed residual inflammation and abscess in pelvis and the drain is displaced out of the abscess cavity. She is afebrile however her white count is 13.5. Her pain is significantly improved. She is complaining of hunger. Hemoglobin hematocrit, BUN, creatinine are all normal. Constitutional Vitals: Vital Signs Temp Pulse Resp BP Pulse Ox 96.5 F L 84 16 122/83 97 02/26/22 12:00 02/26/22 12:00 02/26/22 12:00 02/26/22 12:00 02/26/22 12:00 Period Temp Pulse Resp BP Sys/Amin Pulse Ox Last 24 Hr 96.1 F-97.5 F 61-84 16-20 112-134/75-89 91-97 Intake and Output 02/26/22 02/26/22 02/26/22 05:59 13:59 21:59 Intake Total 850 650 Output Total 20 5 Balance 830 645 Intake & Output: Intake & Output 02/26/22 02/26/22 02/26/22 05:59 13:59 21:59 Intake Total 850 650 Output Total 20 5 Balance 830 645 Intake: IV 50 50 Zosyn 3.375 gm In Dextrose 5% 50 50 in Water 50 ml @ 100 mls/hr IV Q6H [facility] Rx#:[id number] Oral 800 600 Output: Drainage 5 Lower Abdomen 5 Drainage 20 Lower Abdomen 20 Void Amount 0 Other: Meal Lunch Percent of Meal Consumed 100% # Voids 1 ENT ENT exam: Present mucous membranes moist and normal oropharynx Neck Neck exam: Present full ROM and normal inspection Respiratory Respiratory exam: Present normal respiratory exam and CTAB Cardiovascular Cardiovascular exam: Present RRR, +S1 and +S2; Absent JVD GI/Abdominal GI/Abdominal exam: Present normal bowel sounds, soft, distended (Mild lower abdominal distention) and tenderness Additional comments: Tenderness right lower quadrant and an. Portal areas. Extremities Exam Extremities exam: Present normal inspection and neurovascular intact Neurological Exam Neurological exam: Present oriented X3 and reflexes normal; Absent motor sensory deficit Psychiatric Psychiatric exam: Present agitated, anxious, depressed and flat affect A/P Assessment and plan (1) Acute appendicitis with appendiceal abscess: Status: Acute (2) PTSD (post-traumatic stress disorder): Status: Chronic (3) Hypertension, essential: Status: Chronic (4) Bipolar disorder: Status: Chronic Plan Patient is stable and improved. She will continue on 2 more days of antibiotics with probable discharge on Thursday. Time Spent With Patient Time: Total time spent is greater than 50% in coordination of care (as documented) at patient's floor/unit and/or counseling patient:
[2022-02-26] MEDS: HYDROmorphone 0.5 MG/0.5 ML SYRINGE IV PRN ×2 (19:21→23:31)
[2022-02-26] MEDS: MIRTAZAPINE 15 MG TABLET PO SCH (21:25)
[2022-02-27] MEDS: ALPRAZolam 0.5 MG TABLET PO SCH ×5 (00:37→20:43)
[2022-02-27] MEDS: oxyCODONE HCL 5 MG TABLET PO PRN ×3 (02:39→17:37)
[2022-02-27] MEDS: PIPERACILLIN SODIUM/TAZOBACTAM 3.375 GM in DEXTROSE 5% IN WATER 50 ML IV SCH ×3 (05:45→17:06)
[2022-02-27] MEDS: DULoxetine 30 MG CAPSULE PO SCH ×2 (08:03→20:43)
[2022-02-27] MEDS: PANTOPRAZOLE 40 MG VIAL IV SCH ×2 (08:03→17:07)
[2022-02-27] MEDS: LUMATEPERONE 42 MG PO SCH (08:04)
[2022-02-27] MEDS: GABAPENTIN 100 MG CAPSULE PO SCH ×3 (08:04→20:44)
[2022-02-27] MEDS ORDERED: NICOTINE 21 MG PATCH TOPICAL ONE (10:08)
[2022-02-27 10:22] LABS: Basophils # (Auto) 0.09 K/mcL (0.00-0.30); Basophils % (Auto) 0.9 % (0.0-2.0); Hematocrit 44.4 % (34.1-44.9); Hemoglobin 13.3 g/dL (11.2-15.7); Lymphocytes # (Auto) 3.36 K/mcL (1.50-4.80); Lymphocytes % (Auto) 34.1 % (15.5-49.0); Mean Cell Volume 95.1 fL (80.0-100.0); Mean Platelet Volume 9.6 fL (7.4-10.4); Monocytes # (Auto) 0.59 K/mcL (0.10-0.90); Platelet Count 282 K/mcL (140-440); RBC 4.67 M/mcL (3.59-5.38); Red Cell Distribution Width 13.4 % (11.5-14.5); WBC 9.8 K/mcL (4.5-11.0)
[2022-02-27] MEDS ORDERED: DOCUSATE SODIUM 100 MG CAPSULE PO ONE (12:57)
[2022-02-27 15:59] LABS: Basophils # (Auto) 0.06 K/mcL (0.00-0.30); Basophils % (Auto) 0.7 % (0.0-2.0); Eosinophils # (Auto) 0.11 K/mcL (0.00-0.70); Eosinophils % (Auto) 1.3 % (0.0-7.0); Hematocrit 42.2 % (34.1-44.9); Hemoglobin 13.2 g/dL (11.2-15.7); Lymphocytes # (Auto) 2.84 K/mcL (1.50-4.80); Lymphocytes % (Auto) 33.3 % (15.5-49.0); Mean Cell Volume 91.5 fL (80.0-100.0); Mean Corpuscular HGB Conc 31.3 g/dL (31.0-36.0); Mean Platelet Volume 9.9 fL (7.4-10.4); Monocytes # (Auto) 0.67 K/mcL (0.10-0.90); Monocytes % (Auto) 7.9 % (1.0-12.0); Neutrophils % (Auto) 56.8 % (38.0-78.0); Platelet Count 285 K/mcL (140-440); RBC 4.61 M/mcL (3.59-5.38); Red Cell Distribution Width 13.2 % (11.5-14.5); WBC 8.5 K/mcL (4.5-11.0)
--- NOTE | 2022-02-27 16:13 | General Surgery Progress Note ---
SUBJECTIVE Subjective Patient information: Note initiated : 02/27/22 at 4:09 pm Service Date, if different from initiated Date: [] Patient: Yvette Arellano 41 y/o F admitted on 02/26/22 for flank pain. Chief Complaint: [] Principal diagnosis: Acute appendicitis with perforation Interval history: Patient is doing well. She has minimal discomfort. She is tolerating a diet without difficulty. She has had flatus and small bowel movement. She does not complain of any distention. DANN drainage is primarily serous. White blood count has decreased to normal. Constitutional Vitals: Vital Signs Temp Pulse Resp BP Pulse Ox 97.3 F 81 14 141/81 95 02/27/22 12:00 02/27/22 12:00 02/27/22 12:00 02/27/22 12:00 02/27/22 12:00 Period Temp Pulse Resp BP Sys/Amin Pulse Ox Last 24 Hr 96.8 F-97.4 F 67-84 14-16 106-148/63-85 90-96 Intake and Output 02/27/22 02/27/22 02/27/22 05:59 13:59 21:59 Intake Total 970 100 Output Total 20 15 Balance 950 85 Weight 209 lb 6.4 oz Patient Weight 02/28/22 05:59 Weight 209 lb 6.4 oz Intake & Output: Intake & Output 02/27/22 02/27/22 02/27/22 05:59 13:59 21:59 Intake Total 970 100 Output Total 20 15 Balance 950 85 Weight 209 lb 6.4 oz Intake: IV 50 100 Zosyn 3.375 gm In Dextrose 5% 50 100 in Water 50 ml @ 100 mls/hr IV Q6H [facility] Rx#:[id number] Oral 920 Output: Drainage 15 Lower Abdomen 15 Drainage 20 Lower Abdomen 20 Eye Eye exam: Present EOMI and PERRL Pupils: Present normal accommodation ENT ENT exam: Present normal oropharynx Neck Neck exam: Present full ROM; Absent tenderness Respiratory Respiratory exam: Present normal respiratory exam and CTAB; Absent accessory muscle use, rales or respiratory distress Cardiovascular Cardiovascular exam: Present normal rate and rhythm, RRR, +S1 and +S2; Absent gallop or JVD GI/Abdominal GI/Abdominal exam: Present normal bowel sounds, soft, distended (No distention noted) and tenderness (Mild tenderness around port sites and drain site) Extremities Exam Extremities exam: Present full ROM and neurovascular intact Neurological Exam Neurological exam: Present normal gait and oriented X3; Absent motor sensory deficit Psychiatric Psychiatric exam: Present anxious and flat affect A/P Assessment and plan (1) Acute appendicitis with appendiceal abscess: Status: Acute (2) PTSD (post-traumatic stress disorder): Status: Chronic (3) Hypertension, essential: Status: Chronic (4) Bipolar disorder: Status: Chronic Narrative A/P Narrative: Patient will be continued on present antibiotics. She remains stable with normal white blood count she may be able to be discharged tomorrow Time Spent With Patient Time: Total time spent is greater than 50% in coordination of care (as documented) at patient's floor/unit and/or counseling patient:
[2022-02-27 16:58] LABS: ALT/SGPT 14 U/L (<40); AST/SGOT 13 U/L (<32); Albumin 2.3 gm/dL (3.2-5.2); Albumin/Globulin Ratio 0.8 (1.0-2.3); Alkaline Phosphatase 85 U/L (39-117); Bilirubin,Direct < 0.2 mg/dL (0-0.3); Bilirubin,Total 0.2 mg/dL (0.1-1.0); Blood Urea Nitrogen 4 mg/dL (6-20); Calcium 8.3 mg/dL (8.6-10.4); Carbon Dioxide 25 mmol/L (22-30); Chloride 104 mmol/L (96-108); Globulin 2.9 gm/dL (2.2-3.7); Glomerular Filtration Rate 121; Glucose 132 mg/dL (70-105); Lactate Dehydrogenase 156 U/L (135-225); Phosphorous 3.5 mg/dL (2.5-4.5); Triglycerides 138 mg/dL (<150); Uric Acid 2.9 mg/dL (2.5-8.0)
[2022-02-27] MEDS: MIRTAZAPINE 15 MG TABLET PO SCH (20:44)
[2022-02-27] MEDS ORDERED: POTASSIUM CHLORIDE 20 MEQ TABLET PO ONE ×2 (21:00→21:34)
[2022-02-28] MEDS: ALPRAZolam 0.5 MG TABLET PO SCH ×4 (00:47→15:44)
[2022-02-28] MEDS: oxyCODONE HCL 5 MG TABLET PO PRN ×3 (03:16→12:59)
[2022-02-28] MEDS: PIPERACILLIN SODIUM/TAZOBACTAM 3.375 GM in DEXTROSE 5% IN WATER 50 ML IV SCH ×3 (05:03→12:19)
[2022-02-28 07:08] LABS: ALT/SGPT 12 U/L (<40); AST/SGOT 11 U/L (<32); Albumin 2.5 gm/dL (3.2-5.2); Alkaline Phosphatase 76 U/L (39-117); Bilirubin,Direct < 0.2 mg/dL (0-0.3); Bilirubin,Total 0.3 mg/dL (0.1-1.0); Blood Urea Nitrogen 3 mg/dL (6-20); Calcium 8.2 mg/dL (8.6-10.4); Carbon Dioxide 27 mmol/L (22-30); Chloride 105 mmol/L (96-108); Globulin 2.6 gm/dL (2.2-3.7); Glomerular Filtration Rate 121; Glucose 75 mg/dL (70-105); Lactate Dehydrogenase 164 U/L (135-225); Phosphorous 3.9 mg/dL (2.5-4.5); Triglycerides 145 mg/dL (<150); Uric Acid 2.5 mg/dL (2.5-8.0)
[2022-02-28] MEDS ORDERED: POTASSIUM CHLORIDE 20 MEQ TABLET PO ONE (08:00)
[2022-02-28] MEDS: PANTOPRAZOLE 40 MG VIAL IV SCH (08:14)
[2022-02-28] MEDS: DULoxetine 30 MG CAPSULE PO SCH (08:14)
[2022-02-28] MEDS: GABAPENTIN 100 MG CAPSULE PO SCH ×2 (08:14→15:45)
[2022-02-28] MEDS: LUMATEPERONE 42 MG PO SCH (08:16)
[2022-02-28] MEDS ORDERED: DOCUSATE SODIUM 100 MG CAPSULE PO SCH (09:00)
[2022-02-28] MEDS ORDERED: NICOTINE 21 MG PATCH TOPICAL SCH (10:00)
--- NOTE | 2022-02-28 11:38 | Operative Note ---
DATE OF OPERATION: 02/26/2022 DATE OF PROCEDURE: 02/24/2022 PREOPERATIVE DIAGNOSIS: Acute appendicitis with abscess. POSTOPERATIVE DIAGNOSIS: Acute appendicitis with abscess and with perforation. PROCEDURE: Laparoscopic appendectomy and drainage of pelvic abscess. SURGEON: Hayes Aviles M.D. FINDINGS: Acute severe gangrenous appendix with perforation of the distal tip. DESCRIPTION OF PROCEDURE: Under general anesthesia, the patient's abdomen was prepped and draped in a sterile field. Timeout procedure was carried out as per protocol. Supraumbilical midline incision was made and Veress needle was inserted uneventfully. Abdomen was insufflated with 3 liters of CO2. A 12 mm port was placed. Laparoscope was placed. The patient was placed in deep Trendelenburg position. Under videoscopic guidance, a 5 mm port was placed in the suprapubic midline and a 12 mm port was placed in the left lower quadrant. The cecum was identified and followed into the pelvis. There was a hard phlegmon-like structure in the pelvis that involved the rectum, omentum and loop of small bowel. The base of the cecum was identified and followed down into the pelvis. The residual appendix was dissected back to the phlegmon. At this point, there was noted to be gangrenous perforation of the distal tip of the appendix with separation of the proximal segment from the distal tip. Using blunt dissection, the distal tip was dissected, but it was totally necrotic. Abscess cavity was entered. It was suctioned and irrigated. The appendix and mesoappendix were dissected. The base of the appendix was transected using an Endo SULLY stapler. Mesoappendix was transected using the Endo SULLY stapler. The appendix was placed in an EndoCatch pouch and retrieved. Further blunt dissection of the phlegmon was carried out with no other purulence noted, though there was a significant amount of necrotic-appearing tissue. A #10 Sage drain was placed through the suprapubic midline and the tip was placed down in the pelvis, though it appeared that it was difficult for the drain to stay positioned. I did not wish to staple it in place because of fear of injuring tissue once the drain was pulled. Once I was sure there was no bleeding and that all visible pus was removed, the patient was placed in the supine position and taken out of deep Trendelenburg. The omentum then moved down into the pelvis and held the drain in place. CO2 was allowed to escape from the abdomen and the ports were removed. The patient tolerated the procedure well. The fascia at the umbilicus was closed with interrupted 0 Vicryl. The drain was secured with 2-0 nylon. Skin incisions were closed with mark. The patient tolerated the procedure well. She was awakened and transferred to the postanesthetic care unit in satisfactory condition. LCS:sam Job ID: [id number] Doc ID: [id number] Hayes Aviles M.D.
--- NOTE | 2022-02-28 14:02 | Discharge Summary ---
Discharge Provider Provider Patient information: Note initiated : 02/28/22 at 2:00 pm Service Date, if different from initiated Date: [] Patient: Yvette Arellano 41 y/o F admitted on 02/26/22 for flank pain. Chief Complaint: [] Date of admission: 02/26/22 07:00 Discharge date: 02/28/22 Primary care physician: KANDACE Fournier Admitting clinician: Hayes Aviles Attending physician on admission: Hayes Aviles Consults: 02/24/22 Consult to Physician [CONS] Stat Comment: Consulting Provider: Hayes Aviles Reason For Exam: Physician to Consult Attending physician on discharge: Hayes Aviles Discharging clinician: Hayes Aviles COURSE Hospital Course Hospital course: 41-year-old female who presented to the emergency room with a 3-day history of right lower quadrant pain. She had been seen in the emergency room previously and was treated for UTI but symptoms persisted. On evaluation she was noted to have a tender hypogastric region and tenderness in the right lower quadrant with guarding and rebound. Her white blood count was elevated and CT confirmed acute appendicitis with appendiceal abscess in the pelvis. She underwent laparoscopic appendectomy with drainage of the pelvic abscess. She was treated with antibiotics preoperatively and has continued on antibiotics. Her white blood count has been normal for 2days. She is stable at this time and has mild discomfort. Her DANN drainage is serosanguineous. She is discharged home on Levaquin and Flagyl x10 days. She will be seen in the office in 10 days and have follow-up CT. Discharge diagnosis: Acute appendicitis with perforation and pelvic abscess Secondary discharge diagnosis: Bipolar disorder Hypertension Panic disorder with agoraphobia Posttraumatic stress disorder Reason for admission: Acute appendicitis with pelvic abscess Procedures: Laparoscopic appendectomy and drainage of pelvic abscess Pertinent studies/significant findings: CT of abdomen and pelvis with IV contrast x2 Complications: None Time Spent with Patient Time attestation: Total time spent providing and/or coordinating discharge services: Physical Examination Vital Signs Vital signs: Temp Pulse Resp BP Pulse Ox 98.1 F 92 H 16 125/86 91 02/28/22 11:32 02/28/22 11:32 02/28/22 11:32 02/28/22 11:32 02/28/22 11:32 General physical appearance General physical exam: well developed, well nourished, no distress, moderate pain and obese Eyes Eye exam: PERRL and normal ocular movement ENT ENT exam: normal mucosa and no congestion Head Head exam IM: Present atraumatic, normal inspection and normocephalic Neck Neck exam: no masses, no bruits, trachea midline, no lymphadenopathy and no venous distension Cardiovascular Cardiovascular exam IM: Present normal rate and rhythm, RRR, +S1 and +S2; Absent JVD Respiratory Respiratory exam: normal expansion, normal respiratory effort and clear to auscultation Abdomen Abdomen: Present soft, tender (Mild tenderness around port site and drain) and bowel sounds (Normal bowel sounds) Integumentary Integumentary: Present no rash, no growths and no abnormal pigmentation Neurologic Neurologic: Present normal coordination and normal sensation Musculoskeletal Musculoskeletal: Present normal gait and normal posture Psychiatric Psychiatric: Present oriented to time, oriented to person, oriented to place, speech is normal and memory intact Discharge Plan Patient/Caregiver Discharge Instructions Activity: increase activity as tolerated Diet: Regular Diet Instructions: Dick-Iniguez Drain Care (GEN), Laparoscopic Appendectomy (GEN) Prescriptions: New oxycodone-acetaminophen [Endocet] 10-325 mg Tablet 1 tab PO Q4H PRN (Reason: Pain) Qty: 20 0RF levofloxacin [levofloxacin] 750 MG tablet 750 mg PO DAILY Qty: 10 0RF metronidazole 500 mg tablet 500 mg PO TID 10 Days Qty: 30 0RF Continued acyclovir 400 mg tablet 400 mg PO TID 0RF spironolactone 25 mg tablet 25 mg PO BID 0RF dulaglutide [Trulicity] 0.75 mg subcut WEEKLY 0RF Rx Instructions: "for weight loss, one shot per week" propranolol 80 MG capsule,extended release 24 hr 80 mg PO DAILY 0RF duloxetine [Cymbalta] 60 mg capsule,delayed release(DR/EC) 60 mg PO BID 0RF aripiprazole [Abilify] 20 mg Tablet 20 mg PO QDAY 0RF nitrofurantoin monohyd/m-cryst [Macrobid] 100 mg capsule 100 mg PO Q12H 7 Days Qty: 14 0RF Rx Instructions: must administer with a meal/food phenazopyridine [Pyridium] 100 mg tablet 100 mg PO TID PRN (Reason: pain) Qty: 6 0RF gabapentin 300 mg Capsule 300 mg PO QHS 0RF prazosin 1 mg Capsule 1 mg PO QHS 0RF metronidazole 500 mg Tablet 500 mg PO BID 0RF mirtazapine 30 mg Tablet 30 mg PO QHS 0RF diazepam 5 mg Tablet 5 mg PO TID PRN (Reason: Anxiety) 0RF Caplyta 42 mg Capsule 42 mg PO DAILY 0RF Follow Up Plan Follow up with: Mani Hardy ARNP [Primary Care Provider] - Hayes Aviles MD [Physician] - (Please call on Thursday to schedule an appointment. The office is closed on Thursday. Office appointment in 10 days) Patient Disposition: Home, Self-Care Prognosis: Good Rehab Potential: Good I certify that the patient requires SNF services: No Overall status at discharge: patient is progressing back to baseline Discharge Orders: Discharge Order (Routine); Ordered 02/28/22 Ordered By: Hayes Aviles Discharge Comment: Patient must follow-up in the office in 10 days, Pending Pending Pending: Resuscitation Status Resuscitate (Full Code) Diet Full Liquid Diet Start Dilcia Feb 27 130 Alprazolam (Alprazolam 0.5 Mg Tablet) 1 mg PO Q6H [facility] Admin: 02/28/22 08:14 Dose: 1 mg Documented by: Admin: 02/28/22 03:11 Dose: 1 mg Documented by: Admin: 02/28/22 00:47 Dose: Not Given Documented by: Admin: 02/27/22 20:43 Dose: 1 mg Documented by: Admin: 02/27/22 20:00 Dose: Not Given Documented by: Admin: 02/27/22 11:53 Dose: 1 mg Documented by: Admin: 02/27/22 08:03 Dose: 1 mg Documented by: Admin: 02/27/22 00:37 Dose: 1 mg Documented by: Admin: 02/26/22 17:49 Dose: 1 mg Documented by: Admin: 02/26/22 12:05 Dose: 1 mg Documented by: Admin: 02/26/22 05:44 Dose: 1 mg Documented by: Admin: 02/26/22 00:16 Dose: 1 mg Documented by: Admin: 02/25/22 21:09 Dose: 1 mg Documented by: Admin: 02/25/22 12:06 Dose: 1 mg Documented by: Admin: 02/25/22 09:07 Dose: Not Given Documented by: Admin: 02/25/22 00:05 Dose: 1 mg Documented by: Admin: 02/24/22 17:38 Dose: 1 mg Documented by: DK Docusate Sodium (Docusate Sodium 100 Mg Capsule) 100 mg PO DAILY [facility] Last Admin: 02/28/22 08:14 Dose: 100 mg Documented by: OLIVER Duloxetine HCl (Duloxetine 30 Mg Capsule) 60 mg PO BID [facility] Admin: 02/28/22 08:14 Dose: 60 mg Documented by: Admin: 02/27/22 20:43 Dose: 60 mg Documented by: Admin: 02/27/22 08:03 Dose: 60 mg Documented by: Admin: 02/26/22 21:25 Dose: 60 mg Documented by: Admin: 02/26/22 08:50 Dose: 60 mg Documented by: Admin: 02/25/22 21:09 Dose: 60 mg Documented by: Admin: 02/25/22 08:52 Dose: 60 mg Documented by: Admin: 02/24/22 21:01 Dose: 60 mg Documented by: EARL Gabapentin (Gabapentin 100 Mg Capsule) 100 mg PO TID [facility] Admin: 02/28/22 08:14 Dose: 100 mg Documented by: Admin: 02/27/22 20:44 Dose: 100 mg Documented by: Admin: 02/27/22 17:06 Dose: 100 mg Documented by: Admin: 02/27/22 08:04 Dose: 100 mg Documented by: Admin: 02/26/22 21:26 Dose: 100 mg Documented by: Admin: 02/26/22 16:48 Dose: 100 mg Documented by: Admin: 02/26/22 08:50 Dose: 100 mg Documented by: Admin: 02/25/22 21:09 Dose: 100 mg Documented by: Admin: 02/25/22 13:43 Dose: Not Given Documented by: Admin: 02/25/22 09:08 Dose: Not Given Documented by: Admin: 02/24/22 21:01 Dose: 100 mg Documented by: EARL Hydromorphone HCl (Hydromorphone 0.5 Mg/0.5 Ml Syringe) 0.5 mg IV Q2HP PRN; Protocol PRN Reason: Per Pain Protocol Last Admin: 02/26/22 23:31 Dose: 0.5 mg Documented by: Admin: 02/26/22 19:21 Dose: 0.5 mg Documented by: Admin: 02/24/22 17:52 Dose: 0.5 mg Documented by: DK Piperacillin Sod/Tazobactam (Sod 3.375 gm/ Dextrose) 50 mls @ 100 mls/hr IV Q6H DANIEL; Protocol Last Admin: 02/28/22 12:19 Dose: 100 mls/hr Documented by: Infusion: 02/28/22 11:58 Dose: 0 mls/hr Documented by: Admin: 02/28/22 05:03 Dose: 100 mls/hr Documented by: Infusion: 02/28/22 00:48 Dose: 0 mls/hr Documented by: Admin: 02/28/22 00:00 Dose: 100 mls/hr Documented by: Infusion: 02/27/22 18:00 Dose: 0 mls/hr Documented by: Admin: 02/27/22 17:06 Dose: 100 mls/hr Documented by: Infusion: 02/27/22 13:32 Dose: 0 mls/hr Documented by: Admin: 02/27/22 11:53 Dose: 100 mls/hr Documented by: Infusion: 02/27/22 08:05 Dose: 100 mls/hr Documented by: Admin: 02/27/22 05:45 Dose: 100 mls/hr Documented by: Infusion: 02/27/22 00:29 Dose: 0 mls/hr Documented by: Admin: 02/26/22 23:26 Dose: 100 mls/hr Documented by: Infusion: 02/26/22 18:26 Dose: 0 mls/hr Documented by: Admin: 02/26/22 17:42 Dose: 100 mls/hr Documented by: Infusion: 02/26/22 12:35 Dose: 100 mls/hr Documented by: Admin: 02/26/22 12:05 Dose: 100 mls/hr Documented by: Infusion: 02/26/22 06:42 Dose: 0 mls/hr Documented by: Admin: 02/26/22 05:44 Dose: 100 mls/hr Documented by: Infusion: 02/26/22 00:15 Dose: 0 mls/hr Documented by: Admin: 02/25/22 23:37 Dose: 100 mls/hr Documented by: Infusion: 02/25/22 18:16 Dose: 0 mls/hr Documented by: Admin: 02/25/22 17:16 Dose: 100 mls/hr Documented by: Infusion: 02/25/22 12:59 Dose: 0 mls/hr Documented by: Admin: 02/25/22 12:06 Dose: 100 mls/hr Documented by: Infusion: 02/25/22 06:16 Dose: 0 mls/hr Documented by: Admin: 02/25/22 05:38 Dose: 100 mls/hr Documented by: Infusion: 02/25/22 00:55 Dose: 0 mls/hr Documented by: Admin: 02/25/22 00:12 Dose: 100 mls/hr Documented by: Infusion: 02/24/22 18:42 Dose: 0 mls/hr Documented by: Admin: 02/24/22 17:39 Dose: 100 mls/hr Documented by: Infusion: 02/24/22 14:20 Dose: 0 mls/hr Documented by: Admin: 02/24/22 12:33 Dose: 100 mls/hr Documented by: Infusion: 02/24/22 05:53 Dose: 0 mls/hr Documented by: Admin: 02/24/22 05:15 Dose: 100 mls/hr Documented by: [email or web address] Mirtazapine (Mirtazapine 15 Mg Tablet) 30 mg PO HS DANIEL Last Admin: 02/27/22 20:44 Dose: 30 mg Documented by: Admin: 02/26/22 21:25 Dose: 30 mg Documented by: Admin: 02/25/22 21:09 Dose: 30 mg Documented by: Admin: 02/24/22 21:04 Dose: 30 mg Documented by: EARL Nicotine (Nicotine 21 Mg Patch) 21 mg TOPICAL DAILY@1000 [facility] Last Admin: 02/28/22 12:56 Dose: Not Given Documented by: OLIVER Oxycodone HCl (Oxycodone Hcl 5 Mg Tablet) 10 mg PO Q4HP PRN; Protocol PRN Reason: Per Pain Protocol Last Admin: 02/28/22 12:59 Dose: 10 mg Documented by: Admin: 02/28/22 09:09 Dose: 10 mg Documented by: Admin: 02/28/22 03:16 Dose: 10 mg Documented by: Admin: 02/27/22 17:37 Dose: 10 mg Documented by: [email or web address] Admin: 02/27/22 08:33 Dose: 10 mg Documented by: Admin: 02/27/22 02:39 Dose: 10 mg Documented by: Admin: 02/26/22 21:27 Dose: 10 mg Documented by: Admin: 02/26/22 17:48 Dose: 10 mg Documented by: Admin: 02/26/22 12:28 Dose: 10 mg Documented by: Admin: 02/26/22 05:44 Dose: 10 mg Documented by: Admin: 02/26/22 00:16 Dose: 10 mg Documented by: Admin: 02/25/22 21:13 Dose: 10 mg Documented by: Admin: 02/25/22 16:38 Dose: 10 mg Documented by: Admin: 02/25/22 08:53 Dose: 10 mg Documented by: DK Pantoprazole Sodium (Pantoprazole 40 Mg Vial) 40 mg IV BIDAC [facility] Last Admin: 02/28/22 08:14 Dose: 40 mg Documented by: Admin: 02/27/22 17:07 Dose: 40 mg Documented by: Admin: 02/27/22 08:03 Dose: 40 mg Documented by: Admin: 02/26/22 17:49 Dose: 40 mg Documented by: Admin: 02/26/22 08:50 Dose: 40 mg Documented by: Admin: 02/25/22 16:38 Dose: 40 mg Documented by: Admin: 02/25/22 07:27 Dose: 40 mg Documented by: DK Lumateperone [ Caplyta] 42 Mg Capsule 1 dose PO DAILY DANIEL Last Admin: 02/28/22 08:16 Dose: Not Given Documented by: Admin: 02/27/22 08:04 Dose: Not Given Documented by: Admin: 02/26/22 08:51 Dose: Not Given Documented by: Admin: 02/25/22 09:08 Dose: Not Given Documented by: DK Shift Summary 02/28/22 00:58 Shift Summary by Carmela Cole Addendum entered by Carmela Cole R.N. 02/28/22 04:45: Pt also given Mahogany 10mg @ 0316 Addendum entered by Carmela Cole R.N. 02/28/22 04:40: DANN had 50mL of serosanguineous fluid. Pt given 0000 dose of xanax at 0300 because pt woke with anxiety. Original Note: Primary Diagnosis: Appendicitis Registration Status: Day of Hospitalization: Admit 02/24 Date of Surgery (if applicable): 02/24 lap appy Pertinent Medical Dx/Issue(s): PTSD, bipolar, depression, anxiety, RA, chr. pain, PCOS, pre-diabetic Interventions (wounds, diuresis, etc): 3 lap sites to ABD with stables covered with tega and DANN to RLQ, minimal drainage to sites. Vital Signs with Trends: VSS on RA Neuro/Mental Status: A&Ox4, calls appropriately, pleasant and cooperative. Meds (abo, pain, BP, etc): DANIEL Xanax q6h only given x3 d/t sleeping, Mahogany PRN, Dilaudid PRN Lines/Tubes: IV to RFA SL O2, liter flow/saturations: RA Lab/Rad results: BUN 4, Cr 0.5, Ca 8.3, K+ was 3.0 (40mEq given x1 2nd dose to be given in the AM) 02/26/2022- Pt developed several thick bands of atelectasis in both lung bases since 02/24. Date of last BM: 02/22, unusual for her to not go daily Elimination: BR, gas/no BM thus far; Colace to start at 0900. Recommendations/questions for MD: Activity: Ad-froilan, SBA with IV pole when hooked up Expected date of discharge: 03/01? Discharge Plan (needs, disposition, etc): TBD Initialized on 02/28/22 00:58 - END OF NOTE
== END 2022-02-28 15:15 | disposition home or self-care (01) | DRG 340 ==
LOC: MEDSUR 00:25 → ED 00:25 → MEDSUR 06:40
PROVIDERS: ADMIT Family Medicine Adult Medicine; ATTEND Family Medicine Adult Medicine